=== PATIENT | male | born 1965 | race Two or more races ===

== ENCOUNTER 2017-07-24 13:07 | Emergency (ER) | payer MEDICAID ==
[~2017-07-24] VITALS: Ht 175.3 cm; Wt 95.3 kg
[2017-07-24 13:09] VITALS: BP 135/74
[2017-07-24] MEDS ORDERED: IBUPROFEN 600 MG TABLET PO ONE ×2 (13:40→14:00)
--- NOTE | 2017-07-24 14:18 | NUR ---
PARKING ATTENDANT AT BEDSIDE
== END 2017-07-24 15:18 | disposition home or self-care (01) ==
LOC: ER 13:10
DX: J06.9 Acute upper respiratory infection, unspecified (principal)
CPT/HCPCS: 71010-TC; A4606; Z7610